=== PATIENT | female | born 1960 | race Asian ===

== ENCOUNTER 2019-06-18 23:25 | Emergency (ER) | payer OTHER ==
[~2019-06-18] VITALS: Ht 157.5 cm; Wt 56.9 kg
[2019-06-18 23:38] VITALS: Ht 157.5 cm; Wt 56.9 kg
[2019-06-19 01:05] LABS: UA SPECIFIC GRAVITY <=1.005 (1.005-1.035); microscopic required? YES; urine erythrocyte 3+ (NEGATIVE)
[2019-06-19 01:43] VITALS: BP 148/94
== END 2019-06-19 01:43 | disposition home or self-care (01) ==
LOC: ED 23:25
PROVIDERS: Emergency Medicine
DX: N39.0 Urinary tract infection, site not specified (principal); N30.81 Other cystitis with hematuria

== ENCOUNTER 2019-09-16 15:47 | Inpatient (IN) | payer OTHER ==
[~2019-09-16] VITALS: Ht 157.5 cm; Wt 51.3 kg
[2019-09-16 16:42] LABS: RED CELL DISTRIBUTION WIDTH 14.9 % (11.5-14.5)
[2019-09-16 16:43] LABS: PLATELET COUNT 769 x10^3mcL (130-400)
[2019-09-16 16:54] LABS: ALKALINE PHOSPHATASE 307 U/L (46-116); ALT/SGPT 12 U/L (14-59); AST/SGOT 11 U/L (15-37); BILIRUBIN TOTAL 0.2 mg/dL (0.20-1.00); CARBON DIOXIDE 12.9 mmol/L (21-32); CHLORIDE SERUM 90 mmol/L (98-107); CREATININE SERUM 0.9 mg/dL (0.6-1.0); GFR1 > 60 mL/min; GLUCOSE SERUM 271 mg/dL (74-106); POTASSIUM SERUM 4.2 mmol/L (3.5-5.1); TOTAL PROTEIN, SERUM 7.6 g/dL (6.4-8.2)
[2019-09-16 16:56] LABS: ALBUMIN 2.9 g/dL (3.4-5.0)
[2019-09-16 16:57] LABS: SODIUM SERUM 118 mmol/L (136-145)
[2019-09-16 18:01] LABS: BAND NEUTROPHIL 16 % (0-10); METAMYELOCTE 2 % (0-2); MONOCYTE 1 % (0-7); MYELOCYTE 2 % (0-2); SEGMENTED NEUTROPHILS 75 % (37-75); rbc morphology (normal/abnorm) NORMAL (NORMAL)
[2019-09-16 18:02] LABS: PLATELET MORPHOLOGY PLATELETS INCREASED
[2019-09-16 20:48] VITALS: BP 133/74
[2019-09-16 21:06] VITALS: Ht 157.5 cm; Wt 51.3 kg
[2019-09-16] MEDS ORDERED: LEVO-T25 MCG PO (21:12)
[2019-09-16] MEDS ORDERED: ZES10 PO (21:13)
[2019-09-16] MEDS ORDERED: PRILOSEC OTC20 M1 PO (21:13)
[2019-09-16] MEDS ORDERED: SIMVASTATIN5 M2 PO (21:13)
[2019-09-16] MEDS ORDERED: FORTAMET1000 MG PO (21:13)
[2019-09-16] MEDS ORDERED: MOT600 PO (21:14)
[2019-09-16] MEDS ORDERED: NORCO1 TA2 PO (21:14)
[2019-09-16] MEDS ORDERED: COLACE100 MG PO (21:15)
[2019-09-16] MEDS ORDERED: OXYCODONE AND A1 TA7 PO (21:15)
[2019-09-16] MEDS ORDERED: DRAMAMINE LESS25 MG PO (21:15)
[2019-09-16] MEDS ORDERED: ROBAXIN-750750 MG PO (21:16)
[2019-09-16] MEDS ORDERED: SENNA8.6 M2 PO (21:16)
[2019-09-17 05:14] VITALS: BP 131/76
[2019-09-17 07:17] LABS: ALKALINE PHOSPHATASE 268 U/L (46-116); ALT/SGPT 10 U/L (14-59); AST/SGOT 15 U/L (15-37); CARBON DIOXIDE 11.8 mmol/L (21-32); CHLORIDE SERUM 96 mmol/L (98-107); CREATININE SERUM 0.7 mg/dL (0.6-1.0); GFR1 > 60 mL/min; GLUCOSE SERUM 122 mg/dL (74-106); POTASSIUM SERUM 3.5 mmol/L (3.5-5.1); SODIUM SERUM 126 mmol/L (136-145); TOTAL PROTEIN, SERUM 6.9 g/dL (6.4-8.2)
[2019-09-17 07:50] VITALS: BP 128/70
[2019-09-17 07:50] LABS: ALBUMIN 2.6 g/dL (3.4-5.0)
[2019-09-17 08:00] LABS: BILIRUBIN TOTAL 0.1 mg/dL (0.20-1.00)
[2019-09-17 08:16] LABS: RED CELL DISTRIBUTION WIDTH 14.8 % (11.5-14.5)
[2019-09-17 08:34] LABS: microscopic required? YES; urine erythrocyte 1+ (NEGATIVE)
[2019-09-17 12:09] LABS: BAND NEUTROPHIL 29 % (0-10); METAMYELOCTE 1 % (0-2); MONOCYTE 4 % (0-7); MYELOCYTE 3 % (0-2); PLATELET MORPHOLOGY PLATELETS INCREASED; SEGMENTED NEUTROPHILS 60 % (37-75); rbc morphology (normal/abnorm) ABNORMAL (NORMAL)
[2019-09-17 12:12] LABS: PLATELET COUNT 672 x10^3mcL (130-400)
[2019-09-17 15:44] VITALS: BP 129/77
[2019-09-17 20:14] VITALS: BP 131/74
[2019-09-18 05:58] VITALS: BP 132/71
[2019-09-18 08:36] VITALS: BP 141/83
[2019-09-18 15:08] VITALS: BP 141/83
[2019-09-18 16:28] LABS: ALKALINE PHOSPHATASE 289 U/L (46-116); ALT/SGPT 15 U/L (14-59); AST/SGOT 18 U/L (15-37); BILIRUBIN TOTAL 0.1 mg/dL (0.20-1.00); CALCIUM 9.3 mg/dL (8.5-10.1); CHLORIDE SERUM 93 mmol/L (98-107); CREATININE SERUM 0.9 mg/dL (0.6-1.0); GFR1 > 60 mL/min; GLUCOSE SERUM 204 mg/dL (74-106); POTASSIUM SERUM 3.8 mmol/L (3.5-5.1)
[2019-09-18 16:33] LABS: RED CELL DISTRIBUTION WIDTH 15.4 % (11.5-14.5)
[2019-09-18 16:34] LABS: PLATELET COUNT 665 x10^3mcL (130-400)
[2019-09-18 16:42] LABS: ALBUMIN 2.5 g/dL (3.4-5.0)
[2019-09-18 16:43] LABS: CARBON DIOXIDE 8.6 mmol/L (21-32); SODIUM SERUM 120 mmol/L (136-145)
[2019-09-18 16:56] LABS: BAND NEUTROPHIL 9 % (0-10); BASOPHIL 0 % (0-2); METAMYELOCTE 1 % (0-2); MONOCYTE 1 % (0-7); SEGMENTED NEUTROPHILS 87 % (37-75)
[2019-09-18 16:58] LABS: PLATELET MORPHOLOGY PLATELETS INCREASED; rbc morphology (normal/abnorm) NORMAL (NORMAL)
[2019-09-18 17:22] VITALS: BP 128/75
[2019-09-18 20:05] VITALS: BP 130/86
[2019-09-19 05:42] VITALS: BP 136/74
[2019-09-19 07:27] LABS: CALCIUM 9.1 mg/dL (8.5-10.1); CREATININE SERUM 0.8 mg/dL (0.6-1.0); GFR1 > 60 mL/min
[2019-09-19 07:40] LABS: CHLORIDE SERUM 95 mmol/L (98-107); GLUCOSE SERUM 126 mg/dL (74-106); POTASSIUM SERUM 3.6 mmol/L (3.5-5.1)
[2019-09-19 07:50] LABS: CARBON DIOXIDE 8.1 mmol/L (21-32); SODIUM SERUM 123 mmol/L (136-145)
[2019-09-19 08:09] LABS: RED CELL DISTRIBUTION WIDTH 15.2 % (11.5-14.5)
[2019-09-19 09:10] VITALS: BP 145/79
[2019-09-19 10:24] LABS: PLATELET COUNT 617 x10^3mcL (130-400)
[2019-09-19 12:25] LABS: BAND NEUTROPHIL 20 % (0-10); METAMYELOCTE 1 % (0-2); MONOCYTE 4 % (0-7); MYELOCYTE 1 % (0-2); SEGMENTED NEUTROPHILS 71 % (37-75); rbc morphology (normal/abnorm) ABNORMAL (NORMAL)
[2019-09-19 12:26] LABS: burr cell (echinocyte) 1+
[2019-09-19 13:05] VITALS: BP 128/67
[2019-09-19 17:23] VITALS: BP 123/67
[2019-09-19 18:30] LABS: CALCIUM 8.3 mg/dL (8.5-10.1); CARBON DIOXIDE 17.3 mmol/L (21-32); CHLORIDE SERUM 96 mmol/L (98-107); CREATININE SERUM 0.9 mg/dL (0.6-1.0); GFR1 > 60 mL/min; GLUCOSE SERUM 219 mg/dL (74-106); POTASSIUM SERUM 3.7 mmol/L (3.5-5.1); SODIUM SERUM 125 mmol/L (136-145)
[2019-09-19 20:28] VITALS: BP 117/67
[2019-09-20 05:43] VITALS: BP 115/63
[2019-09-20 07:08] LABS: ALBUMIN 2.1 g/dL (3.4-5.0); ALKALINE PHOSPHATASE 238 U/L (46-116); ALT/SGPT 8 U/L (14-59); AST/SGOT 13 U/L (15-37); BILIRUBIN TOTAL 0.2 mg/dL (0.20-1.00); CALCIUM 8.4 mg/dL (8.5-10.1); CARBON DIOXIDE 14.2 mmol/L (21-32); CHLORIDE SERUM 96 mmol/L (98-107); CREATININE SERUM 0.8 mg/dL (0.6-1.0); GFR1 > 60 mL/min; GLUCOSE SERUM 140 mg/dL (74-106); MAGNESIUM 1.6 mg/dL (1.8-2.4); POTASSIUM SERUM 3.4 mmol/L (3.5-5.1); SODIUM SERUM 127 mmol/L (136-145); TOTAL PROTEIN, SERUM 5.8 g/dL (6.4-8.2)
[2019-09-20 08:01] LABS: RED CELL DISTRIBUTION WIDTH 15.4 % (11.5-14.5)
[2019-09-20 09:11] VITALS: BP 123/69
[2019-09-20 10:34] LABS: BAND NEUTROPHIL 15 % (0-10); MONOCYTE 3 % (0-7); SEGMENTED NEUTROPHILS 74 % (37-75); rbc morphology (normal/abnorm) ABNORMAL (NORMAL)
[2019-09-20 10:35] LABS: PLATELET MORPHOLOGY PLATELETS INCREASED; burr cell (echinocyte) 1+
[2019-09-20 10:42] LABS: PLATELET COUNT 552 x10^3mcL (130-400)
[2019-09-20 13:20] VITALS: BP 104/61
[2019-09-20 17:22] VITALS: BP 111/61
[2019-09-20 22:01] VITALS: BP 106/60
[2019-09-21 06:00] VITALS: BP 108/69
[2019-09-21 07:30] LABS: CALCIUM 7.6 mg/dL (8.5-10.1); CARBON DIOXIDE 22.3 mmol/L (21-32); CHLORIDE SERUM 93 mmol/L (98-107); CREATININE SERUM 0.8 mg/dL (0.6-1.0); GFR1 > 60 mL/min; GLUCOSE SERUM 99 mg/dL (74-106); POTASSIUM SERUM 3.5 mmol/L (3.5-5.1); SODIUM SERUM 127 mmol/L (136-145)
[2019-09-21 07:57] VITALS: BP 118/70
[2019-09-21 08:15] LABS: RED CELL DISTRIBUTION WIDTH 15.6 % (11.5-14.5)
[2019-09-21 11:52] LABS: BAND NEUTROPHIL 10 % (0-10); MONOCYTE 4 % (0-7); SEGMENTED NEUTROPHILS 81 % (37-75); rbc morphology (normal/abnorm) ABNORMAL (NORMAL)
[2019-09-21 11:53] LABS: burr cell (echinocyte) 1+
[2019-09-21 11:54] LABS: PLATELET COUNT 528 x10^3mcL (130-400)
[2019-09-21 12:20] VITALS: BP 114/62
[2019-09-21] MEDS ORDERED: DOCUSATE SODIU100 MG PO (14:48)
[2019-09-21] MEDS ORDERED: MORPHINE SU4 MG/1 M1 IV (14:50)
[2019-09-21] MEDS ORDERED: NOVAPLUS E40 MG/0.4 SQ (14:51)
[2019-09-21] MEDS ORDERED: POLYETHYLE17 GM/Dos4 PO (14:51)
[2019-09-21] MEDS ORDERED: SODIUM CHLORIDE1 G1 PO (14:52)
[2019-09-21] MEDS ORDERED: REGLAN5 M1 PO (14:52)
[2019-09-21] MEDS ORDERED: NPHOS (14:53)
[2019-09-21] MEDS ORDERED: NPHOS PO (14:55)
[2019-09-21] MEDS ORDERED: SOD650 PO (14:56)
[2019-09-21] MEDS ORDERED: BLOOD GLUCOSE1 EACH MC (14:57)
[2019-09-21] MEDS ORDERED: APAP325 MG PO (14:58)
[2019-09-21] MEDS ORDERED: [UNRECOGNIZED DRUG - OTHER] IV (14:59)
[2019-09-21] MEDS ORDERED: ZOLPIDEM TARTR3.5 MG SL (15:00)
[2019-09-21] MEDS ORDERED: ATI1 PO (15:01)
[2019-09-21] MEDS ORDERED: DEXTROSE 50%-WA50 M1 IV (15:01)
[2019-09-21] MEDS ORDERED: CLONIDINE HYDR0.1 M1 PO (15:03)
[2019-09-21 16:04] VITALS: BP 111/65
== END 2019-09-21 16:54 | disposition short-term general hospital (02) | DRG 872 ==
LOC: ED 15:47 → DU 19:13 → MU 19:13
PROVIDERS: Emergency Medicine; Internal Medicine Nephrology; Internal Medicine Pulmonary Disease; ADMIT Internal Medicine Pulmonary Disease; ATTEND Internal Medicine Pulmonary Disease
DX: A41.9 Sepsis, unspecified organism (principal); E87.1 Hypo-osmolality and hyponatremia; N13.6 Pyonephrosis; E11.9 Type 2 diabetes mellitus without complications; E78.5 Hyperlipidemia, unspecified; I10 Essential (primary) hypertension; E03.9 Hypothyroidism, unspecified; Z85.51 Personal history of malignant neoplasm of bladder
CPT/HCPCS: 82962; 83880; 85060; 97116-GP; G0378; J0696; J1650; J1815; J2270; J2405; J2543; J3010; J3475; J3490; J7030; J7050; J8597; Q0092; Q9967